=== PATIENT | male | born 1970 | race Caucasian/White ===

== ENCOUNTER 2020-04-30 13:46 | Outpatient (CLI) | payer OTHER ==
--- NOTE | 2020-04-30 14:14 | XRAY Report ---
PROCEDURE: Hand 3 View RT INDICATIONS: PAIN IN JOINTS OF RIGHT HAND TECHNIQUE: 3 views of the hand(s) acquired. COMPARISON: None FINDINGS: Bones: No fractures or dislocations. No suspicious bony lesions. Minimal degenerative changes are seen. Soft tissues: No suspicious soft tissue calcifications. IMPRESSION: No significant plain film abnormality is seen for age. Reviewed by: Daljit Rocha MD on 04/30/2020 1:12 PM AKDT Approved by: Daljit Rocha MD on 04/30/2020 1:12 PM AKDT Station ID: [id number]
== END 2020-04-30 13:47 | disposition home or self-care (01) ==
LOC: DI.S 13:46
PROVIDERS: ATTEND Physician Assistant Medical
DX: M79.644 Pain in right finger(s) (principal)